=== PATIENT | female | born 1955 | race Caucasian/White ===

== ENCOUNTER 2018-09-29 15:15 | Inpatient (IN) ==
[2018-09-29 16:22] LABS: Basophils % 0.1 % (0.0-0.8); Eosinophils % 0.4 % (0.00-10.9); Hematocrit 40.4 VOL% (35.7-47.0); Hemoglobin 12.5 GM/DL (12.0-16.0); Immature Granulocytes % 0.3 %; Immature Granulocytes Absolute 0.03 #; Lymphocytes # 1.8 10*3/uL (1.4-4.0); Lymphocytes % 19.4 % (21.3-54.2); Mean Corpuscular HGB Conc 30.9 GM/DL (32-36); Mean Corpuscular Hemoglobin 29 PG (27-34); Mean Corpuscular Volume 93.7 FL (87-102); Mean Platelet Volume 9.3 FL (9.6-12.0); Monocytes # 0.6 10*3/uL (0.11-0.8); Monocytes % 6.9 % (1.7-12.7); Neutrophils # 6.6 10*3/uL (1.4-7.4); Neutrophils % 72.9 % (38.7-73.9); Platelet Count 247 T/CUMM (130-400); Red Blood Count 4.31 MC/CUMM (3.8-5.5); Red Cell Distribution Width 12.5 % (9.3-17.3)
[2018-09-29 16:45] LABS: Potassium 3.5 MMOL/L (3.5-5.1)
[2018-09-29] MEDS ORDERED: ALBUTEROL/IPRATROPIUM 3 ML NEB RESP TX STA (19:37)
[2018-09-29] MEDS ORDERED: ONDANSETRON 4 MG/2 ML VIAL IV PRN (20:06)
[2018-09-29] MEDS ORDERED: ALBUTEROL/IPRATROPIUM 3 ML NEB RESP TX PRN (20:11)
[2018-09-29] MEDS: GABAPENTIN 100 MG CAPSULE PO SCH (22:33)
[2018-09-29] MEDS: POTASSIUM CHLORIDE 20 MEQ TABLET PO SCH (22:33)
[2018-09-29] MEDS: VERAPAMIL 120 MG TABLET PO SCH (22:34)
[2018-09-29] MEDS: TOLTERODINE 2 MG TABLET PO SCH (22:34)
[2018-09-29] MEDS: ENOXAPARIN 40 MG/0.4 ML SYRINGE SUBCUT SCH (22:36)
[2018-09-29] MEDS: LEVOFLOXACIN INJ 750 MG in PREMIX 1 EACH IV SCH (22:40)
[2018-09-30 04:56] LABS: Basophils % 0.2 % (0.0-0.8); Eosinophils % 0.6 % (0.00-10.9); Hematocrit 36.6 VOL% (35.7-47.0); Hemoglobin 11.1 GM/DL (12.0-16.0); Immature Granulocytes % 0.5 %; Immature Granulocytes Absolute 0.03 #; Lymphocytes # 1.6 10*3/uL (1.4-4.0); Lymphocytes % 24.7 % (21.3-54.2); Mean Corpuscular HGB Conc 30.3 GM/DL (32-36); Mean Corpuscular Hemoglobin 29 PG (27-34); Mean Corpuscular Volume 95.3 FL (87-102); Mean Platelet Volume 9.7 FL (9.6-12.0); Monocytes # 0.7 10*3/uL (0.11-0.8); Monocytes % 11.2 % (1.7-12.7); Neutrophils # 4.1 10*3/uL (1.4-7.4); Neutrophils % 62.8 % (38.7-73.9); Platelet Count 228 T/CUMM (130-400); Red Blood Count 3.84 MC/CUMM (3.8-5.5); Red Cell Distribution Width 12.8 % (9.3-17.3); White Blood Count 6.4 T/CUMM (4-12)
[2018-09-30 05:38] LABS: Calcium 8.7 MG/DL (8.5-10.1); Potassium 3.4 MMOL/L (3.5-5.1)
[2018-09-30] MEDS: VERAPAMIL 120 MG TABLET PO SCH (08:50)
[2018-09-30] MEDS: POTASSIUM CHLORIDE 20 MEQ TABLET PO SCH ×2 (08:50→21:15)
[2018-09-30] MEDS: ALLOPURINOL 100 MG TABLET PO SCH (08:50)
[2018-09-30] MEDS: TOLTERODINE 2 MG TABLET PO SCH ×2 (08:50→21:14)
[2018-09-30] MEDS: POTASSIUM CHLORIDE 20 MEQ TABLET PO PRN ×3 (08:51→13:40)
[2018-09-30] MEDS: PANTOPRAZOLE 40 MG TABLET PO SCH (08:51)
[2018-09-30] MEDS: PRAVASTATIN 40 MG TABLET PO SCH (08:51)
[2018-09-30] MEDS: FUROSEMIDE 40 MG/4 ML VIAL IV SCH ×2 (08:51→15:59)
[2018-09-30] MEDS: GABAPENTIN 100 MG CAPSULE PO SCH ×3 (08:51→21:15)
[2018-09-30] MEDS: LACTULOSE 20 GM/30 ML UDCUP PO SCH (08:51)
[2018-09-30] MEDS ORDERED: traMADol 50 MG TABLET PO PRN (14:20)
[2018-09-30] MEDS: MONTELUKAST 10 MG TABLET PO SCH ×2 (15:49→21:15)
[2018-09-30] MEDS: BENZONATATE 100 MG CAPSULE PO SCH ×2 (15:50→22:55)
[2018-09-30] MEDS: POLYETHYLENE GLYCOL POWDER 17 GM PACK PO SCH ×2 (15:50→21:16)
[2018-09-30] MEDS: methylPREDNISolone SOD SUC 40 MG/1 ML VIAL IV SCH ×2 (15:51→21:13)
[2018-09-30] MEDS: ENOXAPARIN 40 MG/0.4 ML SYRINGE SUBCUT SCH (21:13)
[2018-09-30] MEDS: LEVOFLOXACIN INJ 750 MG in PREMIX 1 EACH IV SCH (21:14)
[2018-09-30] MEDS: DOCUSATE SODIUM 100 MG CAPSULE PO SCH (21:15)
[2018-10-01 02:39] LABS: Basophils % 0.1 % (0.0-0.8); Hematocrit 40.6 VOL% (35.7-47.0); Hemoglobin 12.5 GM/DL (12.0-16.0); Immature Granulocytes % 0.8 %; Immature Granulocytes Absolute 0.06 #; Lymphocytes % 12.7 % (21.3-54.2); Mean Corpuscular HGB Conc 30.8 GM/DL (32-36); Mean Corpuscular Hemoglobin 29 PG (27-34); Mean Corpuscular Volume 92.9 FL (87-102); Mean Platelet Volume 9.4 FL (9.6-12.0); Monocytes # 0.1 10*3/uL (0.11-0.8); Neutrophils # 6.7 10*3/uL (1.4-7.4); Neutrophils % 85.4 % (38.7-73.9); Platelet Count 271 T/CUMM (130-400); Red Blood Count 4.37 MC/CUMM (3.8-5.5); Red Cell Distribution Width 12.4 % (9.3-17.3); White Blood Count 7.9 T/CUMM (4-12)
[2018-10-01 03:12] LABS: Calcium 9.5 MG/DL (8.5-10.1); Osmolality,Calculated 282.3 MOS/KG (273-304); Potassium 4.2 MMOL/L (3.5-5.1)
[2018-10-01] MEDS: methylPREDNISolone SOD SUC 40 MG/1 ML VIAL IV SCH ×2 (05:21→15:05)
[2018-10-01] MEDS ORDERED: amLODIPine 10 MG TABLET PO SCH (09:00)
[2018-10-01] MEDS ORDERED: hydrALAZINE 25 MG TABLET PO SCH (09:00)
[2018-10-01] MEDS: GABAPENTIN 100 MG CAPSULE PO SCH ×2 (09:55→15:05)
[2018-10-01] MEDS: DOCUSATE SODIUM 100 MG CAPSULE PO SCH (09:56)
[2018-10-01] MEDS: POLYETHYLENE GLYCOL POWDER 17 GM PACK PO SCH (10:00)
[2018-10-01] MEDS: MONTELUKAST 10 MG TABLET PO SCH (10:01)
[2018-10-01] MEDS: LACTULOSE 20 GM/30 ML UDCUP PO SCH (10:05)
[2018-10-01] MEDS: POTASSIUM CHLORIDE 20 MEQ TABLET PO SCH (10:06)
[2018-10-01] MEDS: FUROSEMIDE 40 MG/4 ML VIAL IV SCH (10:08)
[2018-10-01] MEDS: BENZONATATE 100 MG CAPSULE PO SCH ×2 (10:10→15:00)
[2018-10-01] MEDS: PRAVASTATIN 40 MG TABLET PO SCH (10:11)
[2018-10-01] MEDS: PANTOPRAZOLE 40 MG TABLET PO SCH (10:11)
[2018-10-01] MEDS: ALLOPURINOL 100 MG TABLET PO SCH (10:11)
[2018-10-01] MEDS: TOLTERODINE 2 MG TABLET PO SCH (10:12)
[2018-10-01 16:54] VITALS: BP 118/59
[2018-10-02] MEDS ORDERED: FUROSEMIDE 40 MG TABLET PO SCH (09:00)
== END 2018-10-01 17:38 | disposition home health service (06) | DRG 194 ==
LOC: N.ED 15:15 → N.EDINP 21:06 → N.TELES 21:15
PROVIDERS: ADMIT Hospitalist; ATTEND Hospitalist

== ENCOUNTER 2018-12-16 18:25 | Observation (INO) ==
[2018-12-16] MEDS ORDERED: FUROSEMIDE 100 MG/10 ML VIAL IV STA (19:16)
[2018-12-16] MEDS ORDERED: NITROGLYCERIN 2% OINT 1 INCH/GM PACK TOP STA (19:16)
[2018-12-16] MEDS ORDERED: ONDANSETRON 4 MG/2 ML VIAL IV STA (19:16)
[2018-12-16] MEDS ORDERED: methylPREDNISolone SOD SUC 125 MG/2 ML VIAL IV STA (19:16)
[2018-12-16] MEDS ORDERED: ASPIRIN 325 MG TABLET PO STA (19:16)
[2018-12-16] MEDS ORDERED: MORPHINE 4 MG/1 ML VIAL IV STA (19:16)
[2018-12-16] MEDS ORDERED: ALBUTEROL NEB SOLN 5 MG/ML 20 ML/BOTTLE RESP TX SCH (19:30)
[2018-12-16 20:21] LABS: Basophils % 0.2 % (0.0-0.8); Eosinophils # 0.1 10*3/uL (0.0-0.87); Eosinophils % 0.5 % (0.00-10.9); Hematocrit 38.3 VOL% (35.7-47.0); Hemoglobin 12.1 GM/DL (12.0-16.0); Immature Granulocytes % 0.6 %; Immature Granulocytes Absolute 0.06 #; Lymphocytes # 1.4 10*3/uL (1.4-4.0); Lymphocytes % 13.6 % (21.3-54.2); Mean Corpuscular HGB Conc 31.6 GM/DL (32-36); Mean Corpuscular Hemoglobin 30 PG (27-34); Mean Corpuscular Volume 93.4 FL (87-102); Mean Platelet Volume 9.4 FL (9.6-12.0); Monocytes # 0.9 10*3/uL (0.11-0.8); Monocytes % 8.2 % (1.7-12.7); Neutrophils # 8.1 10*3/uL (1.4-7.4); Neutrophils % 76.9 % (38.7-73.9); Platelet Count 258 T/CUMM (130-400); Red Cell Distribution Width 13.6 % (9.3-17.3); White Blood Count 10.5 T/CUMM (4-12)
[2018-12-16 20:41] LABS: Albumin 2.9 G/DL (3.4-5.0); Bilirubin,Total 0.7 MG/DL (0.2-1.0); Calcium 8.7 MG/DL (8.5-10.1); Osmolality,Calculated 282.3 MOS/KG (273-304); Potassium 3.4 MMOL/L (3.5-5.1); Total Protein 6.9 G/DL (6.4-8.3)
[2018-12-16 20:46] LABS: INR 0.9; PT Patient Result 10.3 SECS
[2018-12-16 20:52] LABS: Apearance,Urine CLEAR (Clear); Bacteria,Urine Occasional /HPF (Few); Bilirubin,Urine Negative (Negative); Blood, Urine Negative (Negative); Glucose,Urine (UA) Negative (Negative); Hyaline Casts,Urine 4 /LPF (0-3); Ketones,Urine Negative (Negative); Mucus,Urine Occasional /LPF (Occasional); Nitrite,Urine Negative (Negative); Protein,Urine Negative; Urine Color Straw (Yellow); Urine Specific Gravity 1.009 (1.001-1.035); Urine Urobilinogen < 2.0 EU/DL (0.2-1.0); WBC,Urine <1 /HPF (0-6)
[2018-12-16] MEDS ORDERED: ONDANSETRON 4 MG/2 ML VIAL IV PRN (21:09)
[2018-12-16] MEDS ORDERED: traMADol 50 MG TABLET PO PRN (21:14)
[2018-12-16] MEDS ORDERED: ALBUTEROL 2.5 MG/3 ML NEB RESP TX PRN (21:14)
[2018-12-16] MEDS ORDERED: ENOXAPARIN 40 MG/0.4 ML SYRINGE SUBCUT SCH (21:30)
[2018-12-16 21:44] LABS: Risk Ratio 1.97; VLDL CHOLESTEROL 16.2 MG/DL
[2018-12-16] MEDS ORDERED: SIMVASTATIN 20 MG TABLET PO SCH (22:00)
[2018-12-16] MEDS: GABAPENTIN 100 MG CAPSULE PO SCH (23:51)
[2018-12-16] MEDS: PANTOPRAZOLE 40 MG TABLET PO SCH (23:52)
[2018-12-16] MEDS: hydrALAZINE 25 MG TABLET PO SCH (23:52)
[2018-12-16] MEDS: POTASSIUM CHLORIDE 20 MEQ TABLET PO PRN (23:52)
[2018-12-16] MEDS: CARVEDILOL 12.5 MG TABLET PO SCH (23:52)
[2018-12-16] MEDS: TOLTERODINE 2 MG TABLET PO SCH (23:55)
[2018-12-17] MEDS: NITROGLYCERIN 2% OINT 1 INCH/GM PACK TOP SCH ×2 (01:02→06:37)
[2018-12-17] MEDS: POTASSIUM CHLORIDE 20 MEQ TABLET PO PRN (02:30)
[2018-12-17] MEDS ORDERED: MELOXICAM 7.5 MG TABLET PO SCH (08:00)
[2018-12-17] MEDS ORDERED: FUROSEMIDE 20 MG TABLET PO SCH (09:00)
[2018-12-17] MEDS ORDERED: ISOSORBIDE MONONITRATE 30 MG TABLET PO SCH (09:00)
[2018-12-17] MEDS ORDERED: ALLOPURINOL 100 MG TABLET PO SCH (09:00)
[2018-12-17] MEDS ORDERED: LACTULOSE 20 GM/30 ML UDCUP PO SCH (09:00)
[2018-12-17] MEDS ORDERED: ASPIRIN EC 325 MG TABLET PO SCH (09:00)
[2018-12-17] MEDS ORDERED: amLODIPine 10 MG TABLET PO SCH (09:00)
[2018-12-17] MEDS: GABAPENTIN 100 MG CAPSULE PO SCH (09:34)
[2018-12-17] MEDS: TOLTERODINE 2 MG TABLET PO SCH (09:34)
[2018-12-17] MEDS: PANTOPRAZOLE 40 MG TABLET PO SCH (09:35)
[2018-12-17] MEDS: CARVEDILOL 12.5 MG TABLET PO SCH (09:35)
[2018-12-17] MEDS: hydrALAZINE 25 MG TABLET PO SCH (09:35)
[2018-12-17 12:23] VITALS: BP 117/58
== END 2018-12-17 14:35 | disposition home or self-care (01) ==
LOC: EDUNIT# → EDBD → N.EDINP 18:25 → N.ED 18:25 → N.TELEN 21:42
PROVIDERS: ADMIT Family Medicine; ATTEND Family Medicine

== ENCOUNTER 2019-03-20 17:36 | Observation (INO) ==
[2019-03-20] MEDS ORDERED: ONDANSETRON 4 MG/2 ML VIAL IV PRN (19:18)
[2019-03-20] MEDS ORDERED: ALBUTEROL/IPRATROPIUM 3 ML NEB RESP TX PRN (22:31)
[2019-03-20] MEDS ORDERED: LORazepam 2 MG/1 ML VIAL IV PRN (22:31)
[2019-03-20] MEDS: SODIUM CHLORIDE 0.9% 1,000 ML IV SCH (22:50)
[2019-03-20] MEDS: PANTOPRAZOLE 40 MG VIAL IV SCH (22:50)
[2019-03-21 06:17] LABS: Basophils % 0.4 % (0.0-0.8); Eosinophils # 0.1 10*3/uL (0.0-0.87); Eosinophils % 1.3 % (0.00-10.9); Hematocrit 42.4 VOL% (35.7-47.0); Immature Granulocytes % 0.6 %; Immature Granulocytes Absolute 0.04 #; Lymphocytes # 1.9 10*3/uL (1.4-4.0); Lymphocytes % 27.5 % (21.3-54.2); Mean Corpuscular HGB Conc 30.7 GM/DL (32-36); Mean Corpuscular Hemoglobin 29 PG (27-34); Mean Corpuscular Volume 95.3 FL (87-102); Mean Platelet Volume 9.7 FL (9.6-12.0); Monocytes # 0.9 10*3/uL (0.11-0.8); Monocytes % 13.3 % (1.7-12.7); Neutrophils % 56.9 % (38.7-73.9); Platelet Count 232 T/CUMM (130-400); Red Blood Count 4.45 MC/CUMM (3.8-5.5); Red Cell Distribution Width 13.5 % (9.3-17.3)
[2019-03-21 06:31] LABS: Bilirubin,Total 1.8 MG/DL (0.2-1.0); Calcium 9.3 MG/DL (8.5-10.1); Potassium 3.3 MMOL/L (3.5-5.1); Total Protein 7.2 G/DL (6.4-8.3)
[2019-03-21] MEDS: PANTOPRAZOLE 40 MG VIAL IV SCH ×2 (08:22→20:26)
[2019-03-21 09:00] LABS: Albumin 3.3 G/DL (3.4-5.0); Bilirubin,Direct 0.2 MG/DL (0.0-0.20); Bilirubin,Indirect 0.6 MG/DL (0.0-1.0); Bilirubin,Total 0.8 MG/DL (0.2-1.0); Total Protein 6.9 G/DL (6.4-8.3)
[2019-03-21] MEDS: POTASSIUM CHLORIDE RIDER 10 MEQ in PREMIX 1 EACH IV PRN ×4 (09:53→20:26)
[2019-03-21] MEDS: SODIUM CHLORIDE 0.9% 1,000 ML IV SCH ×2 (09:55→15:53)
[2019-03-21] MEDS: traMADol 50 MG TABLET PO PRN (14:18)
[2019-03-21] MEDS ORDERED: GABAPENTIN 100 MG CAPSULE PO ONE (16:54)
[2019-03-21] MEDS: LACTULOSE 20 GM/30 ML UDCUP PO SCH (17:01)
[2019-03-21] MEDS: GABAPENTIN 100 MG CAPSULE PO SCH (20:26)
[2019-03-22 04:22] LABS: Basophils % 0.2 % (0.0-0.8); Eosinophils # 0.1 10*3/uL (0.0-0.87); Eosinophils % 1.7 % (0.00-10.9); Hematocrit 39.4 VOL% (35.7-47.0); Hemoglobin 12.1 GM/DL (12.0-16.0); Immature Granulocytes % 0.8 %; Immature Granulocytes Absolute 0.05 #; Lymphocytes # 1.7 10*3/uL (1.4-4.0); Lymphocytes % 28.7 % (21.3-54.2); Mean Corpuscular HGB Conc 30.7 GM/DL (32-36); Mean Corpuscular Hemoglobin 29 PG (27-34); Mean Corpuscular Volume 95.4 FL (87-102); Mean Platelet Volume 9.7 FL (9.6-12.0); Monocytes # 0.8 10*3/uL (0.11-0.8); Monocytes % 13.6 % (1.7-12.7); Neutrophils # 3.3 10*3/uL (1.4-7.4); Platelet Count 211 T/CUMM (130-400); Red Blood Count 4.13 MC/CUMM (3.8-5.5); Red Cell Distribution Width 13.5 % (9.3-17.3)
[2019-03-22 04:54] LABS: Calcium 8.8 MG/DL (8.5-10.1); Osmolality,Calculated 278.3 MOS/KG (273-304); Potassium 3.7 MMOL/L (3.5-5.1)
[2019-03-22] MEDS: traMADol 50 MG TABLET PO PRN ×2 (08:59→14:15)
[2019-03-22] MEDS: PANTOPRAZOLE 40 MG VIAL IV SCH (09:01)
[2019-03-22] MEDS: LACTULOSE 20 GM/30 ML UDCUP PO SCH ×2 (09:01→09:04)
[2019-03-22] MEDS: GABAPENTIN 100 MG CAPSULE PO SCH ×2 (09:01→14:15)
[2019-03-22] MEDS: SODIUM CHLORIDE 0.9% 1,000 ML IV SCH ×2 (09:08→13:13)
[2019-03-22 11:44] VITALS: BP 123/61
[2019-03-22] MEDS ORDERED: NYSTATIN POWDER 15 GM BOTTLE TOP SCH (15:00)
[2019-03-22] MEDS ORDERED: PANTOPRAZOLE 40 MG TABLET PO SCH (16:30)
== END 2019-03-22 17:32 | disposition home or self-care (01) ==
LOC: EDBD → EDUNIT# → N.EDINP 17:36 → N.ED 17:36 → N.5E 20:58
PROVIDERS: ADMIT Internal Medicine; ATTEND Internal Medicine